=== PATIENT | female | born 1965 | race Caucasian/White ===

== ENCOUNTER 2017-11-25 21:42 | Emergency (ER) | payer OTHER ==
[~2017-11-25] VITALS: Ht 170.2 cm; Wt 83.6 kg
[2017-11-25 22:56] LABS: BASOPHIL (%) 0.6 % (0-1); BASOPHIL COUNT 0.1 K/uL (0-0.1); EOSINOPHIL COUNT 0.1 K/uL (0-0.3); HEMATOCRIT 40.9 % (36.0-46.0); HEMOGLOBIN 14.2 G/DL (11.9-15.5); IMMATURE GRANULOCYTE (%) 0.4 % (0.0-0.7); LYMPHOCYTE (%) 22.3 % (15-42); LYMPHOCYTE COUNT 2.2 K/uL (1.0-2.8); MCH 31.2 PG (29.0-34.0); MCHC 34.7 G/DL (30.0-36.0); MCV 89.9 FL (83-99); MONOCYTE (%) 6.5 % (3-12); MONOCYTE COUNT 0.6 K/uL (0-0.8); NEUTROPHIL (%) 69.2 % (45-76); NEUTROPHIL COUNT 6.8 K/uL (1.8-6.4); PLATELET COUNT 273 K/uL (156-360); RBC DIS.WIDTH-CV 12.4 % (11.8-14.6); RBC DIS.WIDTH-SD 40.6 % (39-53); RED BLOOD COUNT 4.55 M/uL (3.80-5.20); WHITE BLOOD COUNT 9.9 K/uL (4.1-10.2)
[2017-11-25 23:05] LABS: ALBUMIN 4.3 g/dL (3.2-4.8); CHLORIDE 105 mEq/L (99-109); POTASSIUM 3.7 mEq/L (3.7-5.4); SODIUM 138 mEq/L (136-147)
[2017-11-25 23:07] LABS: GLUCOSE 92 mg/dL (70-99); TOTAL PROTEIN 7.3 g/dL (6.4-8.3)
[2017-11-25 23:09] LABS: TOTAL BILIRUBIN 0.4 mg/dL (0.0-1.0)
[2017-11-25 23:11] LABS: ALKALINE PHOSPHATASE 60 IU/L (3-129); GFR ESTIMATE (CALCULATED) > 59 mL/min/
[2017-11-25 23:12] LABS: UREA NITROGEN (BUN) 16 mg/dL (9-23)
[2017-11-25 23:13] LABS: AST (GOT) 22 IU/L (2-34); DIRECT BILIRUBIN 0.2 mg/dL (0.0-0.3)
[2017-11-25 23:14] LABS: ALT (GPT) 18 IU/L (3-49); LIPASE 19 U/L (1.0-51.0)
[2017-11-25 23:17] LABS: TROP-I INTERPRETATION NEGATIVE; TROPONIN-I 0.01 ng/mL (0.0-0.30)
[2017-11-26 01:24] LABS: TROP-I INTERPRETATION NEGATIVE; TROPONIN-I 0.03 ng/mL (0.0-0.30)
[2017-11-26] MEDS ORDERED: LIDOCAINE700 MG TP (01:58)
[2017-11-26 02:05] VITALS: BP 124/75
== END 2017-11-26 02:07 | disposition home or self-care (01) ==
LOC: EME 21:42
PROVIDERS: Emergency Medicine
DX: R07.9 Chest pain, unspecified (principal); M62.830 Muscle spasm of back
CPT/HCPCS: 71046; 80048; 80076; 83690; 84484; 85025; 93005; 99281; 99285